=== PATIENT | female | born 1965 | race Caucasian/White ===

== ENCOUNTER 2023-08-22 06:06 | Day surgery (SDC) | payer MEDICARE, MEDICAID ==
[2023-08-21 13:51] VITALS: BMI 23.8
[2023-08-22] MEDS ORDERED: Simethicone 40 MG/0.6 ML Drop 30 ML BOT ONE (07:31)
[2023-08-22] MEDS ORDERED: Midazolam HCl 2 mg/2 ml Vial ONE ×2 (07:33)
[2023-08-22] MEDS ORDERED: Lidocaine 1% PF 5 ML VIAL ONE (07:33)
[2023-08-22] MEDS ORDERED: PROPOFOL 40 ML ONE (07:33)
[2023-08-22] MEDS ORDERED: Hydrocortisone Sod Succ/PF 100 mg/2 ml Vial ONE (07:59)
== END 2023-08-22 09:20 | disposition home or self-care (01) ==
LOC: SDC 06:06
PROVIDERS: ATTEND Internal Medicine Gastroenterology
PROC: 0DBH8ZZ Excision of Cecum, Via Natural or Artificial Opening Endoscopic (ICD-10-PCS; principal; 2023-08-22)
DX: D12.0 Benign neoplasm of cecum (principal); K59.09 Other constipation; F32.A Depression, unspecified; Z86.010 Personal history of colon polyps; Z86.73 Personal history of transient ischemic attack (TIA), and cerebral infarction without residual deficits; Z79.899 Other long term (current) drug therapy
CPT/HCPCS: 88305; J1720; J2250; J2704